=== PATIENT | male | born 1950 | race Caucasian/White ===

== ENCOUNTER → 2020-11-11 | Outpatient (CLI) | payer BC ==
[~2020-11-11] MED LIST: BISOPROLOL-HCT1 EACH PO; CINNAMON PO; CRESTOR20 MG PO; ELIQUIS5 MG PO; FISH OIL 1,0001 EAC4 PO; GLIMEPIRIDE4 MG PO; KRISTALOSE20 GM PO; LISINOPRIL10 MG PO; MELOXICAM7.5 MG PO; OXYCODONE-ACET1 EACH PO; OXYCONTIN60 MG PO; TESTOSTERO200 MG/1 M IM
[2020-11-11 12:19] LABS: HEMOGLOBIN 16.7 gm/dl (14.0-17.5); RED BLOOD COUNT 5.85 M/UL (4.20-5.50); WHITE BLOOD COUNT 8.7 K/UL (4.5-11.0)
== END ==
LOC: OPSV2 11:30
PROVIDERS: Orthopaedic Surgery
DX: Z01.818 Encounter for other preprocedural examination (principal); S63.418A Traumatic rupture of collateral ligament of other finger at metacarpophalangeal and interphalangeal joint, initial encounter; R94.31 Abnormal electrocardiogram [ECG] [EKG]
CPT/HCPCS: 36415; 80048; 85025; 93005

== ENCOUNTER → 2020-11-15 | Day surgery (SDC) | payer BC ==
[~2020-11-15] VITALS: Ht 188 cm; Wt 113.4 kg
== END | disposition home or self-care (01) ==
LOC: OR 09:16
PROVIDERS: Orthopaedic Surgery
PROC: 3E0T3BZ Introduction of Anesthetic Agent into Peripheral Nerves and Plexi, Percutaneous Approach (ICD-10-PCS; 2020-11-15)
PROC: 0RGU04Z Fusion of Right Metacarpophalangeal Joint with Internal Fixation Device, Open Approach (ICD-10-PCS; principal; 2020-11-15 12:25)
DX: S63.114A Dislocation of metacarpophalangeal joint of right thumb, initial encounter (principal); S53.31XA Traumatic rupture of right ulnar collateral ligament, initial encounter; J44.9 Chronic obstructive pulmonary disease, unspecified; F10.10 Alcohol abuse, uncomplicated; I10 Essential (primary) hypertension; I48.91 Unspecified atrial fibrillation; G47.30 Sleep apnea, unspecified; F41.9 Anxiety disorder, unspecified; F32.9 Major depressive disorder, single episode, unspecified; F41.0 Panic disorder [episodic paroxysmal anxiety]; F11.20 Opioid dependence, uncomplicated; K25.9 Gastric ulcer, unspecified as acute or chronic, without hemorrhage or perforation; E11.40 Type 2 diabetes mellitus with diabetic neuropathy, unspecified; M19.90 Unspecified osteoarthritis, unspecified site; E66.9 Obesity, unspecified; Z68.32 Body mass index [BMI] 32.0-32.9, adult; Z53.29 Procedure and treatment not carried out because of patient's decision for other reasons; Z20.822 Contact with and (suspected) exposure to COVID-19; Z79.01 Long term (current) use of anticoagulants; Z79.84 Long term (current) use of oral hypoglycemic drugs; Z79.1 Long term (current) use of non-steroidal anti-inflammatories (NSAID); Z79.890 Hormone replacement therapy; Z79.899 Other long term (current) drug therapy; Z87.442 Personal history of urinary calculi; W00.0XXA Fall on same level due to ice and snow, initial encounter
CPT/HCPCS: 73130; 76000; 82962; C1713; J0690; J1100; J2001; J2270; J2405; J2704; J2795; J3010; J7030; J7120